=== PATIENT | female | born 1940 | race Caucasian/White ===

== ENCOUNTER 2023-10-02 13:25 | Outpatient (OUT) | payer MEDICARE, OTHER, SELFPAY ==
--- NOTE | 2023-10-02 | CT_ITS ---
The [address] [address] Patient Name: TEAGAN SINGLETARY MRN: [id number] date: 1940 Sex: F Assigned Patient Location: LAB Current Patient Location: Accession/Order Number: [id number] Exam Date: 10/02/2023 14:45 Report Date: 10/03/2023 01:29 At the request of: NEHA TELLO Procedure: CT abdomen w con EXAMINATION: CT abdomen w con HISTORY: N28.89 Disorder of kidney ; right renal mass COMPARISON: CT abdomen 03/08/2023 TECHNIQUE: Axial, Coronal, and Sagittal images were obtained without and/or with IV contrast as indicated by examination type. Dose reduction techniques were achieved by using automated exposure control and/or adjustment of mA and/or kV according to patient size and/or use of iterative reconstruction technique FINDINGS: LUNG BASES: Small bilateral pleural effusions. LIVER: No enlargement, atrophy, abnormal density, or significant focal lesion. BILIARY: Cholecystectomy. PANCREAS: No lesion, fluid collection, ductal dilatation, or atrophy. SPLEEN: No enlargement or focal lesion. ADRENALS: No mass or enlargement. KIDNEYS: Stable rim calcified right renal mass with heterogeneous enhancement, 3.5 cm in maximum diameter. BOWEL/MESENTERY: No visible mass, obstruction, or bowel wall thickening. AORTA/VASCULAR: No aneurysm or dissection. RETROPERITONEUM: No mass or adenopathy. ABDOMINAL WALL: No mass or hernia. BONES: L1-L2 marked degenerative disc disease. No bony lesion or fracture. OTHER: Negative. CT/CT abdomen w con IMPRESSION: 1. Suspicious, but stable right renal mass compared to 12/21/2022 and 03/08/2023. Additional follow-up in 6-12 months is recommended to document continued stability. Any change should prompt biopsy (if clinically indicated). 2. New small bilateral pleural effusions of uncertain etiology. Electronically authenticated by: NICKY PATRICIA Date: 10/03/2023 01:29
[2023-10-02 14:04] LABS: Estimated GFR (African America >60 (>=60); Estimated GFR (Non-African Ame 57 (>=60)
== END 2023-10-02 13:26 | disposition home or self-care (01) ==
LOC: LAB 13:26
PROVIDERS: Visit Provider Urology
DX: N28.89 Other specified disorders of kidney and ureter (principal)
CPT/HCPCS: 36415; 74160; 82565; Q9967

== ENCOUNTER 2024-03-05 13:37 | Outpatient (OUT) | payer MEDICARE, OTHER, SELFPAY ==
--- NOTE | 2024-03-05 13:51 | CT_ITS ---
The [address] [address] Patient Name: TEAGAN SINGLETARY MRN: [id number] date: 1940 Sex: F Assigned Patient Location: LAB Current Patient Location: Accession/Order Number: [id number] Exam Date: 03/05/2024 14:20 Report Date: 03/06/2024 07:25 At the request of: WILBUR SIEGEL Procedure: CT abdomen w con EXAM: CT abdomen w con HISTORY: Renal Mass N28.89 COMPARISON: CT abdomen and pelvis 10/02/2023.. TECHNIQUE: Following the intravenous administration of 98 cc of Omnipaque 300, axial soft tissue windows of the abdomen were performed with coronal and sagittal reformats. CT dose reduction technique was used including Automated Exposure Control. Findings: The liver, pancreas, and adrenal glands are unremarkable. The gallbladder is surgically absent. Biliary ductal dilatation likely relates to status post cholecystectomy state. Splenic calcifications likely relating to prior granulomatous disease. Unremarkable left kidney. No significant interval change in the complex cystic right renal mass measuring approximately 3.3 x 2.1 cm. The visualized portions of the bilateral ureters are nondilated. The visualized bowel loops are unremarkable without evidence of wall thickening or obstruction. The aorta is normal caliber. Mild atherosclerotic disease. No enlarged abdominal lymph nodes or free abdominal fluid. No aggressive sclerotic or lytic osseous lesions. Mild multilevel degenerative spondylosis. CT/CT abdomen w con IMPRESSION: 1. No significant interval growth in the previously identified complex cystic right renal mass. Electronically authenticated by: ERIC BOTELLO Date: 03/06/2024 07:25
[2024-03-05 13:59] LABS: Estimated GFR (African America >60 (>=60); Estimated GFR (Non-African Ame 52 (>=60)
== END 2024-03-05 13:38 | disposition home or self-care (01) ==
LOC: LAB 13:37
PROVIDERS: Visit Provider Nurse Practitioner
DX: N28.89 Other specified disorders of kidney and ureter (principal)
CPT/HCPCS: 36415; 74160; 82565; Q9967